=== PATIENT | male | born 1965 | race Caucasian/White ===

== ENCOUNTER → 2018-12-19 | Outpatient (CLI) | payer BC ==
--- NOTE | 2018-12-19 09:31 | US ---
EXAMINATION TYPE: US prostate transrectal DATE OF EXAM: 12/19/2018 COMPARISON: NONE CLINICAL HISTORY: N40.0 benign prostatic hyperplasia. Urinary frequency, BPH This examination was performed using the transrectal probe. EXAM MEASUREMENTS: Gland Size: 4.4 x 2.2 x 4.9cm Volume: 24.9ml Predicted PSA: 2.988 Actual PSA (if available):0.6 - 2016 Initial images show seminal vesicles are felt within normal limits. There is heterogeneous normal siz ed thyroid without discrete nodule. IMPRESSION: Unremarkable study. Predicted PSA = volume x 0.12 ng/ml Calculated Volume = 0.5236 x L x W x H
== END | disposition home or self-care (01) ==
LOC: RADUSMAIN 08:00
PROVIDERS: ATTEND Family Medicine
DX: N40.0 Benign prostatic hyperplasia without lower urinary tract symptoms (principal)
CPT/HCPCS: 76872

== ENCOUNTER 2025-04-13 11:45 | Day surgery (SDC) | payer BC ==
[2025-04-12 14:18] VITALS: BMI 24.3
[2025-04-13] MEDS: IV FLUID CONTINUATION 1,000 ML IV ONE (12:22)
[2025-04-13] MEDS: LACTATED RINGERS 1,000 ML IV SCH (12:22)
[2025-04-13 12:25] VITALS: TEMP 97.6
[2025-04-13] MEDS ORDERED: PROPOFOL 10 MG/ML 20 ML VIAL IV ONE (12:25)
--- NOTE | 2025-04-13 12:28 | P.GSHP ---
History of Present Illness H&P Date: 04/13/25 Chief Complaint: Colon cancer screening 51-year-old male here for colonoscopy. He has not had 1 previously. No bowel complaints. No family history of colon cancer. Past Medical History Past Medical History: No Reported History History of Any Multi-Drug Resistant Organisms: None Reported Past Surgical History: No Surgical Hx Reported Past Anesthesia/Blood Transfusion Reactions: No Reported Reaction Smoking Status: Never smoker - Past Family History Father Family Medical History: Cancer Medications and Allergies Home Medications Medication Instructions Recorded Confirmed Type No Known Home Medications 04/12/25 04/12/25 History Allergies Allergy/AdvReac Type Severity Reaction Status Date / Time No Known Allergies Allergy Verified 04/13/25 12:06 Surgical - Exam Vital Signs Temp Pulse Resp BP Pulse Ox 97.6 F 68 18 141/91 99 04/13/25 12:13 04/13/25 12:13 04/13/25 12:13 04/13/25 12:13 04/13/25 12:13 Physical exam: General: Well-developed, well-nourished HEENT: Normocephalic, sclerae nonicteric Abdomen: Nontender, nondistended Extremities: No edema Neuro: Alert and oriented Assessment and Plan (1) Colon cancer screening Narrative/Plan: Will proceed with colonoscopy at this time. Current Visit: Yes Status: Acute Code(s): Z12.11 - ENCOUNTER FOR SCREENING FOR MALIGNANT NEOPLASM OF COLON SNOMED Code(s): 868132095
--- NOTE | 2025-04-13 12:48 | P.PCN ---
Date of Procedure: 04/13/25 Procedure(s) Performed: PREOPERATIVE DIAGNOSIS: Colon cancer screening POSTOPERATIVE DIAGNOSIS: Ascending colon polyp x 3 PROCEDURE: Colonoscopy with snare polypectomy and clip placement ANESTHESIA: MAC SURGEON: Brian Suárez M.D. SPECIMENS: Polyps ENDOSCOPIC PROCEDURE: The patient was placed on the endoscopy table in the left decubitus position. The Olympus colonoscope was inserted into the anus and passed under direct visualization to the base of the cecum. The appendiceal orifice was visualized. From that point the scope was slowly withdrawn inspecting all surfaces carefully. There were 3 separate polyps in the proximal ascending colon. Largest measured about 1 cm. This was removed and 3 small pieces. At that location there was some friability and I deployed a clip there to help prevent postoperative bleeding. The other 2 polyps were smaller measuring about 7 mm and 5 mm. These were removed in single portions using the snare with cautery technique. No bleeding was seen after irrigation. The remainder of the ascending transverse descending sigmoid and rectum was normal. There was no visible diverticulosis. Digital rectal examination was normal. The patient was taken to the recovery room in stable condition per anesthesia guidelines. RECOMMENDATIONS: Await biopsy results. Will contact patient with timing for next colonoscopy but consider shorter term given the larger polyp removed in a piecemeal fashion.
[2025-04-13 13:08] VITALS: BP 116/65; PULSE 63; RESP 16
== END 2025-04-13 13:42 | disposition home or self-care (01) ==
LOC: ORWHC2ENDO 11:45
PROVIDERS: ATTEND Surgery
DX: Z12.11 Encounter for screening for malignant neoplasm of colon (principal); D12.2 Benign neoplasm of ascending colon
CPT/HCPCS: 88305; 45385; J2704